=== PATIENT | female | born 1995 | race Caucasian/White ===

== ENCOUNTER 2020-04-16 11:38 | Outpatient (CLI) | payer BC, SELFPAY | END 2020-04-16 12:00 | disposition home or self-care (01) | LOC: SLB 11:38 → EDSTATUS 04-23 16:56 → SLB 04-23 16:58 | PROVIDERS: ATTEND Otolaryngology Plastic Surgery within the Head & Neck | DX: Z01.812 Encounter for preprocedural laboratory examination (principal); Z20.828 Contact with and (suspected) exposure to other viral communicable diseases | CPT/HCPCS: U0003 ==